=== PATIENT | male | born 1990 | race Caucasian/White ===

== ENCOUNTER 2017-10-04 20:46 | Emergency (ER) | payer SELFPAY ==
[2017-10-04] MEDS ORDERED: LIDOCAINE 1% INJ-PF (10 MG/ML) 30 ML SDV INJ ONE (22:56)
[2017-10-04] MEDS ORDERED: LIDOCAINE 5% (700 MG) TRANSDERMAL ADH..PATCH TP ONE (22:56)
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
[2017-10-04] MEDS ORDERED: IBUPROFEN 600 MG TABLET PO ONE (23:54)
[2017-10-04] MEDS ORDERED: ACETAMINOPHEN 325 MG TABLET PO ONE (23:54)
[2017-10-04] MEDS ORDERED: MORPHINE SULFATE IR 15 MG TABLET PO ONE (23:54)
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
[2017-10-05 01:47] VITALS: BP 134/80
== END 2017-10-05 01:47 | disposition home or self-care (01) ==
LOC: ER 20:46
DX: S02.81XA Fracture of other specified skull and facial bones, right side, initial encounter for closed fracture (principal); S01.111A Laceration without foreign body of right eyelid and periocular area, initial encounter; S30.0XXA Contusion of lower back and pelvis, initial encounter; S20.222A Contusion of left back wall of thorax, initial encounter; Y08.02XA Assault by strike by baseball bat, initial encounter; R55 Syncope and collapse; R11.0 Nausea; F17.200 Nicotine dependence, unspecified, uncomplicated
CPT/HCPCS: 99284; 70450; 70480; 72128; 12011; J3490

== ENCOUNTER 2017-11-21 14:51 | Emergency (ER) | payer OTHER ==
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
[2017-11-21 16:15] VITALS: BP 123/93
== END 2017-11-21 16:15 | disposition home or self-care (01) ==
LOC: ER 14:51
PROC: 0HQ0XZZ Repair Scalp Skin, External Approach (ICD-10-PCS; principal; 2017-11-21)
DX: S01.01XA Laceration without foreign body of scalp, initial encounter (principal); X58.XXXA Exposure to other specified factors, initial encounter
CPT/HCPCS: 99283